=== PATIENT | female | born 1980 | race Caucasian/White ===

== ENCOUNTER → 2016-06-29 | Day surgery (SDC) | payer BC ==
[~2016-06-29] MED LIST: ANUSOL-HC25 MG PR; NUVARING VAGIN1 EACH VG; ZYRTEC10 M3 PO
== END | disposition home or self-care (01) ==
LOC: OR 07:21
PROVIDERS: Internal Medicine Gastroenterology
PROC: 0DBP8ZX Excision of Rectum, Via Natural or Artificial Opening Endoscopic, Diagnostic (ICD-10-PCS; principal; 2016-06-29 11:15)
DX: Z12.11 Encounter for screening for malignant neoplasm of colon (principal); K64.0 First degree hemorrhoids; L90.5 Scar conditions and fibrosis of skin; K62.6 Ulcer of anus and rectum; E66.3 Overweight; Z85.048 Personal history of other malignant neoplasm of rectum, rectosigmoid junction, and anus; Z79.899 Other long term (current) drug therapy; Z86.010 Personal history of colon polyps; Z87.440 Personal history of urinary (tract) infections; Z87.19 Personal history of other diseases of the digestive system; Z82.49 Family history of ischemic heart disease and other diseases of the circulatory system; Z83.3 Family history of diabetes mellitus
CPT/HCPCS: 84703; J2001; J2250; J7030